=== PATIENT | female | born 1990 | race Caucasian/White ===

== ENCOUNTER 2020-04-09 17:16 | Emergency (ER) | payer MEDICAID ==
[2020-04-09] MEDS ORDERED: Ondansetron 4 MG Tab.DIS PO ONE (17:17)
[2020-04-09] MEDS ORDERED: Nitrofurantoin Monohydrate/Macrocrystalline 100 MG Cap PO ONE (17:17)
[2020-04-09] MEDS ORDERED: Ondansetron 4 MG/2 ML SDV IVPUSH ONE (18:20)
[2020-04-09] MEDS ORDERED: Sodium Chloride 0.9% 10 ML Syringe FLUSH PRN (18:20)
[2020-04-09] MEDS ORDERED: Sodium Chloride 0.9% 1,000 ML IV SCH (18:30)
[2020-04-09] MEDS ORDERED: Acetaminophen 500 MG Tab PO ONE (19:08)
[2020-04-09] MEDS ORDERED: oxyCODONE 5 MG Tab PO ONE (19:47)
--- NOTE | 2020-04-09 20:33 | EDM.PDOC ---
ED HPI GENERAL MEDICAL PROBLEM - General Chief Complaint: General Stated Complaint: COVID SYMPTOMS Time Seen by Provider: 04/09/20 18:15 Source of Information: Reports: Patient History Limitations: Reports: No Limitations - History of Present Illness INITIAL COMMENTS - FREE TEXT/NARRATIVE: Patient is 29 YO at approximately 25 weeks AOG presented to the ED because of N/V/D and sore throat for 2 days. she also c/o spotting, no vaginal bleeding.n There is no associated fever, chills,cough/cold symptoms. 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 - Infectious Disease History Infectious Disease History: Reports: None Social & Family History - Tobacco Use Tobacco Use Status *Q: Never Tobacco User - Caffeine Use Caffeine Use: Reports: None - Recreational Drug Use Recreational Drug Use: No ED ROS GENERAL - Review of Systems Review Of Systems: See Below Constitutional: Reports: No Symptoms HEENT: Reports: No Symptoms Respiratory: Reports: No Symptoms Cardiovascular: Reports: No Symptoms Endocrine: Reports: No Symptoms GI/Abdominal: Reports: Diarrhea ( ), Nausea, Vomiting : Reports: No Symptoms Musculoskeletal: Reports: No Symptoms Skin: Reports: No Symptoms Neurological: Reports: No Symptoms ED EXAM, GENERAL - Physical Exam Exam: See Below Exam Limited By: No Limitations General Appearance: Alert, No Apparent Distress Eye Exam: Bilateral Eye: PERRL Ears: Normal External Exam, Normal Canal Nose: Normal Inspection, Normal Mucosa Throat/Mouth: Normal Inspection, Normal Lips, Normal Teeth Neck: Normal Inspection, Supple, Non-Tender, Full Range of Motion Respiratory/Chest: No Respiratory Distress, Lungs Clear, Normal Breath Sounds Cardiovascular: Normal Peripheral Pulses, Regular Rate, Rhythm, No Edema GI/Abdominal: Soft, Non-Tender, No Organomegaly, Other (hyperactive BS) Back Exam: Normal Inspection, Full Range of Motion Course - Vital Signs Text/Narrative:: Lab results was discussed with patient COVID-neg NS 1 L bolus Zofran 4 mg IV x1 Tylenol 1000 mg po x1 Oxycodone 10 mg po x1 Last Recorded V/S: Last Vital Signs Temp 36.8 C 04/09/20 18:10 Pulse 97 04/09/20 18:10 Resp 18 04/09/20 18:10 BP 126/72 04/09/20 18:10 Pulse Ox 99 04/09/20 18:10 - Orders/Labs/Meds Orders: Active Orders 24 hr Category Date Time Status Saline Lock Insert [OM.PC] Routine Oth 04/09/20 18:20 Ordered Labs: Laboratory Tests 04/09/20 04/09/20 04/09/20 Range/Units 18:45 18:45 19:00 WBC 11.9 H (3.0-10.3) x10-3/uL RBC 3.75 (3.60-5.20) x10(6)uL Hgb 11.5 (11.4-15.5) g/dL Hct 33.2 L (34.2-48.2) % MCV 88.6 (76.7-100.5) fL MCH 30.6 (23.9-33.9) pg MCHC 34.5 (31.9-34.8) g/dL RDW 12.9 (12.3-16.5) % Plt Count 280 (151-488) x10(3)uL MPV 10.6 (7.1-12.4) fL Neut % (Auto) 81.7 H (30.8-76.2) % Lymph % (Auto) 12.2 L (18.4-52.1) % [place] % (Auto) 4.1 L (4.4-15.7) % Eos % (Auto) 1.8 (0.6-8.1) % Baso % (Auto) 0.2 (0.2-1.5) % Neut # (Auto) 9.7 H (1.5-6.3) x10-3/uL Lymph # (Auto) 1.4 (1.0-4.4) x10-3/uL [place] # (Auto) 0.5 (0.3-1.0) x10-3/uL Eos # (Auto) 0.2 (0.0-0.8) x10-3/uL Baso # (Auto) 0.0 (0.0-0.1) x10-3/uL Sodium 137 (135-145) mmol/L Potassium 3.9 (3.5-5.3) mmol/L Chloride 100 (100-110) mmol/L Carbon Dioxide 23 (21-32) mmol/L BUN 5 L (7-18) mg/dL Creatinine 0.7 (0.55-1.02) mg/dL Est Cr Clr Drug Dosing 125.04 mL/min Estimated GFR (MDRD) > 60 (>60) BUN/Creatinine Ratio 7.1 L (9-20) Glucose 78 L (80-116) mg/dL Calcium 9.7 (8.6-10.2) mg/dL Urine Color (YELLOW) Urine Appearance (CLEAR) Urine pH (5.0-6.5) Ur Specific [place] (1.010-1.025) Urine Protein (NEGATIVE) mg/dL Urine Glucose (UA) (NORMAL) mg/dL Urine Ketones (NEGATIVE) mg/dL Urine Occult Blood (NEGATIVE) Urine Nitrite (NEGATIVE) Urine Bilirubin (NEGATIVE) Urine Urobilinogen (NEGATIVE) mg/dL Ur Leukocyte Esterase (NEGATIVE) Urine RBC (0-5) Urine WBC (0-5) Ur Squamous Epith Cells (NS,R,O) Urine Bacteria (NS) SARS-CoV-2 RNA (TRUMAN) Negative (NEGATIVE) 04/09/20 Range/Units 19:10 WBC (3.0-10.3) x10-3/uL RBC (3.60-5.20) x10(6)uL Hgb (11.4-15.5) g/dL Hct (34.2-48.2) % MCV (76.7-100.5) fL MCH (23.9-33.9) pg MCHC (31.9-34.8) g/dL RDW (12.3-16.5) % Plt Count (151-488) x10(3)uL MPV (7.1-12.4) fL Neut % (Auto) (30.8-76.2) % Lymph % (Auto) (18.4-52.1) % [place] % (Auto) (4.4-15.7) % Eos % (Auto) (0.6-8.1) % Baso % (Auto) (0.2-1.5) % Neut # (Auto) (1.5-6.3) x10-3/uL Lymph # (Auto) (1.0-4.4) x10-3/uL [place] # (Auto) (0.3-1.0) x10-3/uL Eos # (Auto) (0.0-0.8) x10-3/uL Baso # (Auto) (0.0-0.1) x10-3/uL Sodium (135-145) mmol/L Potassium (3.5-5.3) mmol/L Chloride (100-110) mmol/L Carbon Dioxide (21-32) mmol/L BUN (7-18) mg/dL Creatinine (0.55-1.02) mg/dL Est Cr Clr Drug Dosing mL/min Estimated GFR (MDRD) (>60) BUN/Creatinine Ratio (9-20) Glucose (80-116) mg/dL Calcium (8.6-10.2) mg/dL Urine Color Yellow (YELLOW) Urine Appearance Clear (CLEAR) Urine pH 7.0 H (5.0-6.5) Ur Specific [place] 1.005 L (1.010-1.025) Urine Protein Negative (NEGATIVE) mg/dL Urine Glucose (UA) Normal (NORMAL) mg/dL Urine Ketones Negative (NEGATIVE) mg/dL Urine Occult Blood Negative (NEGATIVE) Urine Nitrite Negative (NEGATIVE) Urine Bilirubin Negative (NEGATIVE) Urine Urobilinogen Normal (NEGATIVE) mg/dL Ur Leukocyte Esterase Moderate H (NEGATIVE) Urine RBC 0-5 (0-5) Urine WBC 5-10 H (0-5) Ur Squamous Epith Cells Moderate H (NS,R,O) Urine Bacteria Few H (NS) SARS-CoV-2 RNA (TRUMAN) (NEGATIVE) Meds: Medications Discontinued Medications Generic Name Dose Route Start Last Admin Trade Name Freq PRN Reason Stop Dose Admin Acetaminophen 1,000 mg 04/09/20 19:08 04/09/20 19:17 Tylenol Extra Strength PO 04/09/20 19:09 1,000 mg ONETIME ONE Administration Sodium Chloride 1,000 mls @ 999 mls/hr 04/09/20 18:30 04/09/20 19:10 Normal Saline IV 999 mls/hr ASDIRECTED MAURICE Administration Nitrofurantoin Macrocrystals 10 mg 04/09/20 17:17 Macrobid PO 04/09/20 17:18 .STK-MED ONE Ondansetron HCl 4 mg 04/09/20 18:20 04/09/20 19:17 Zofran IVPUSH 04/09/20 18:21 4 mg ONETIME ONE Administration Ondansetron HCl 16 mg 04/09/20 17:17 Zofran Odt PO 04/09/20 17:18 .STK-MED ONE Oxycodone HCl 5 mg 04/09/20 19:47 04/09/20 19:50 Oxycodone PO 04/09/20 19:48 5 mg ONETIME ONE Administration Sodium Chloride 10 ml 04/09/20 18:20 04/09/20 19:05 Saline Flush FLUSH 10 ml ASDIRECTED PRN Administration Keep Vein Open Departure - Departure Time of Disposition: 20:10 Disposition: Home, Self-Care 01 Condition: Good Clinical Impression: Viral gastroenteritis, UTI (urinary tract infection) - Discharge Information Instructions: Viral Gastroenteritis, Adult, [id number], and Urinary Tract Infection Referrals: PCP,None [Primary Care Provider] - Forms: ED Department Discharge Additional Instructions: Please read discharge instructions on viral gastroenteritis and UTI Frequent hand washing Drink 2-3 liters of water daily Zofran ODT 4 mg every 4 hours as needed for nausea Macrobid i tablet twice daily for 5 days Follow up as needed Sepsis Event Note (ED) - Evaluation Sepsis Screening Result: Possible Sepsis Risk - My Orders Last 24 Hours: My Active Orders 04/09/20 18:20 Saline Lock Insert [OM.PC] Routine - Assessment/Plan Last 24 Hours: My Active Orders 04/09/20 18:20 Saline Lock Insert [OM.PC] Routine
== END 2020-04-09 20:57 | disposition home or self-care (01) ==
LOC: FB.ED 17:16
DX: O23.42 Unspecified infection of urinary tract in pregnancy, second trimester (principal); O99.892 Other specified diseases and conditions complicating childbirth; A08.4 Viral intestinal infection, unspecified; Z91.040 Latex allergy status; Z3A.25 25 weeks gestation of pregnancy; Z20.828 Contact with and (suspected) exposure to other viral communicable diseases
CPT/HCPCS: 36415; 80048; 81001; 85025; 87635; 96374; 99284; A9270; J2405; J7030; U0002